=== PATIENT | male | born 1970 | race Caucasian/White ===

== ENCOUNTER 2024-03-12 15:22 | Emergency (ER) | payer MEDICAID ==
[~2024-03-12] VITALS: Ht 177.8 cm; Wt 106.8 kg
[2024-03-12] MEDS ORDERED: ketorolac trometh inj. 60 MG/2 ML VIAL IM ONE (15:55)
[2024-03-12] MEDS ORDERED: PRED10TA23 PO (16:15)
[2024-03-12] MEDS ORDERED: LIDO700A32 TOP (16:15)
[2024-03-12] MEDS ORDERED: CYCL-1 PO (16:15)
[2024-03-12] MEDS: ketorolac tromethamine 15mg/ml inj. IM ONE (16:57)
[2024-03-12] MEDS: dexamethasone sod phosphate 10mg/ml inj IM STA (16:58)
[2024-03-12 17:02] VITALS: BP 191/124; PULSE 102; RESP 18; TEMP 98.4; O2SAT 98
== END 2024-03-12 17:07 | disposition home or self-care (01) ==
LOC: ER 15:24
DX: M54.50 Low back pain, unspecified (principal); I10 Essential (primary) hypertension
CPT/HCPCS: 96372; 99284; J1100; J1885

== ENCOUNTER 2024-03-28 13:44 | Outpatient (CLI) | payer MEDICAID ==
[~2024-03-28 13:44] MED LIST: CYCL-1 PO; LIDO700A32 TOP
== END 2024-03-28 23:59 | disposition home or self-care (01) ==
LOC: MRI 13:44
PROVIDERS: ATTEND Physician Assistant
DX: M51.17 Intervertebral disc disorders with radiculopathy, lumbosacral region (principal); M47.26 Other spondylosis with radiculopathy, lumbar region; M51.36 Other intervertebral disc degeneration, lumbar region; G89.4 Chronic pain syndrome; M48.07 Spinal stenosis, lumbosacral region; M54.50 Low back pain, unspecified
CPT/HCPCS: 72148

== ENCOUNTER 2024-06-30 13:18 | Inpatient (IN) | payer MEDICAID ==
[2024-06-30] VITALS (14 sets, daily range): BP systolic 133–163; BP diastolic 82–101; PULSE 90–105; RESP 11–23; TEMP 97.6–98.1; O2SAT 90–100
[~2024-06-30] VITALS: Ht 175.3 cm; Wt 127.0 kg
[2024-06-30] MEDS ORDERED: iohexol 300mg/ml 100ml inj. ONE (15:37)
[2024-06-30] MEDS: ketorolac trometh 30MG/ML vial 30 MG/ML VIAL IV ONE (16:13)
[2024-06-30] MEDS: ondansetron/PF 4mg/2ml inj IV ONE (16:13)
[2024-06-30 16:24] LABS: ALANINE AMINOTRANSFERASE 73 U/L (12-78); ALBUMIN 2.7 G/DL (3.4-5.0); ALBUMIN/GLOBULIN RATIO 0.6 (1.1-1.5); ALKALINE PHOSPHATASE 66 IU/L (46-116); ANION GAP 7 (8-16); ASPARTATE AMINO TRANSFERASE 44 U/L (10-37); BILIRUBIN,TOTAL 0.3 MG/DL (0.1-1.0); BLOOD UREA NITROGEN 12 MG/DL (7-18); BUN/CREATININE RATIO 18.5 (10.0-20.0); CALCIUM 8.8 MG/DL (8.5-10.1); CHLORIDE 101 MMOL/L (99-107); CREATININE 0.65 MG/DL (0.60-1.10); GLUCOSE 86 MG/DL (70-104); LIPASE 28 U/L (16-77); POTASSIUM 4.3 MMOL/L (3.5-5.1); SODIUM 139 MMOL/L (135-145); TOTAL CARBON DIOXIDE 31.4 MMOL/L (24-32); TOTAL PROTEIN 7.1 G/DL (6.4-8.2); eCRCL 128 ML/MIN; eGFR > 90 ML/MIN
[2024-06-30 16:40] LABS: APTT 29 SECONDS (22-32)
[2024-06-30 17:15] LABS: BASOPHILS # (AUTO) 0.1 X10'3 (0-0.2); BASOPHILS % (AUTO) 1.1 % (0-1); EOSINOPHILS # (AUTO) 0.5 X10'3 (0-0.9); EOSINOPHILS % (AUTO) 5.1 % (0-6); HEMATOCRIT 40.1 % (42.0-52.0); HEMOGLOBIN 13.1 g/dl (14.0-17.9); LYMPHOCYTES # (AUTO) 1.8 X10'3 (1.1-4.8); LYMPHOCYTES % (AUTO) 17.5 % (21-51); MEAN CORPUSCULAR HEMOGLOBIN 28.2 PG (27.0-31.0); MEAN CORPUSCULAR HGB CONC 32.8 g/dL (33.0-36.5); MEAN CORPUSCULAR VOLUME 86.2 FL (78-98); MEAN PLATELET VOLUME 7.5 FL (7.4-10.4); MONOCYTES # (AUTO) 0.7 X10'3 (0-0.9); MONOCYTES % (AUTO) 7.3 % (2-12); NEUTROPHILS # (AUTO) 6.9 X10'3 (1.8-7.7); PLATELET COUNT 434 X10'3 (140-440); RED BLOOD COUNT 4.65 X10'6 (4.70-6.10)
[2024-06-30] MEDS: piperacillin/tazo 3.375gm/50ml 50 ML IV STA (17:28)
[2024-06-30] MEDS: pantoprazole 40 MG vial IV STA (17:28)
[2024-06-30] MEDS: morphine 4 MG/ML inj SYRINge IV ONE (17:29)
[2024-06-30 18:05] LABS: TOTAL CELLS COUNTED 100
[2024-06-30 18:06] LABS: PLATELET ESTIMATE NORMAL
[2024-06-30] MEDS ORDERED: sevoflurane 250ml liquid IH ONE (18:32)
[2024-06-30] MEDS ORDERED: fentaNYL /PF 50mcg/ml 5ml ampule ONE (18:38)
[2024-06-30] MEDS ORDERED: midazolam 1 mg/ML 2ml injection ONE (18:38)
[2024-06-30] MEDS ORDERED: LIDOcaine 2% (20mg/ml) 5ml vial ONE (18:51)
[2024-06-30] MEDS ORDERED: propofol inj 20 ML IV ONE (18:51)
[2024-06-30] MEDS ORDERED: rocuronium 10mg/ml inj IV ONE ×2 (19:14)
[2024-06-30] MEDS ORDERED: ceFOXitin 1000 MG inj ONE ×2 (19:20→19:21)
[2024-06-30] MEDS ORDERED: ringers solution, lacted 1,000 ML IV SCH (19:50)
[2024-06-30] MEDS ORDERED: ondansetron/PF 4mg/2ml inj IV PRN (19:50)
[2024-06-30] MEDS ORDERED: morphine 2 MG/ML inj. syringe IV PRN (19:50)
[2024-06-30] MEDS ORDERED: meperidine/PF 25mg/ml syringe IV PRN ×2 (19:50)
[2024-06-30] MEDS ORDERED: enalaprilat dihydrate 2.5mg/2ml vial IV PRN (19:50)
[2024-06-30] MEDS ORDERED: labetalol 20mg/4ml (5mg/ml) syringe IV PRN (19:50)
[2024-06-30] MEDS ORDERED: proCHLORperazine 10 MG/2 ml inj IV PRN (19:50)
[2024-06-30] MEDS ORDERED: ondansetron/PF 4mg/2ml inj ONE (20:19)
[2024-06-30] MEDS ORDERED: acetaminophen 1,000mg/100ml IV 100 ML IV ONE (20:21)
[2024-06-30] MEDS ORDERED: naloxone 0.4 mg/ml inj IV PRN (20:30)
[2024-06-30] MEDS: morphine 4 MG/ML inj SYRINge IV PRN (20:40)
[2024-06-30] MEDS ORDERED: HYDROmorph/NS 0.2 mg/ml PCA 100 ML IV PRN (20:50)
[2024-06-30] MEDS: meperidine/PF 25mg/ml syringe IV PRN (20:53)
[2024-06-30] MEDS: HYDROmorphone inj. 0.5 MG/0.5 ML DISP.SYRIN IV ONE (21:14)
[2024-06-30] MEDS: HYDROmorph/NS 0.2 mg/ml PCA 100 ML IV SCH (21:30)
[2024-06-30] MEDS: pantoprazole 40MG/NS 100ML BAG 100 ML IV SCH (21:36)
[2024-07-01] VITALS (20 sets, daily range): BP systolic 126–169; BP diastolic 76–105; PULSE 77–108; RESP 12–25; TEMP 97.8–98.6; O2SAT 90–97
[2024-07-01] MEDS: piperacillin/tazo 4.5gm/100ml 100 ML IV SCH (00:15)
[2024-07-01] MEDS: BUPIVACAINE liposomal/PF 13.3 MG/ML vial IM ONE ×2 (01:20→01:21)
[2024-07-01] MEDS: BUPIVAcaine/PF 2.5mg/ml (0.25%) 10ml vial ONE (01:20)
[2024-07-01] MEDS ORDERED: LISI20TA28 PO (05:12)
[2024-07-01 07:49] LABS: BASOPHILS % (AUTO) 0.1 % (0-1); EOSINOPHILS % (AUTO) 0 % (0-6); HEMATOCRIT 38.3 % (42.0-52.0); HEMOGLOBIN 12.3 g/dl (14.0-17.9); LYMPHOCYTES # (AUTO) 0.8 X10'3 (1.1-4.8); LYMPHOCYTES % (AUTO) 6.1 % (21-51); MEAN CORPUSCULAR HEMOGLOBIN 27.8 PG (27.0-31.0); MEAN CORPUSCULAR HGB CONC 32.2 g/dL (33.0-36.5); MEAN CORPUSCULAR VOLUME 86.4 FL (78-98); MEAN PLATELET VOLUME 7.1 FL (7.4-10.4); MONOCYTES # (AUTO) 0.3 X10'3 (0-0.9); MONOCYTES % (AUTO) 1.9 % (2-12); NEUTROPHILS # (AUTO) 12.2 X10'3 (1.8-7.7); NEUTROPHILS % (AUTO) 91.9 % (42-75); PLATELET COUNT 456 X10'3 (140-440); RED BLOOD COUNT 4.44 X10'6 (4.70-6.10); WHITE BLOOD COUNT 13.3 X10'3 (4.5-11.0)
[2024-07-01] MEDS: sod chloride 0.9% 10ml flush syringe IV SCH (07:52)
[2024-07-01 08:07] LABS: ALBUMIN 2.3 G/DL (3.4-5.0); ANION GAP 4 (8-16); BLOOD UREA NITROGEN 13 MG/DL (7-18); BUN/CREATININE RATIO 16.7 (10.0-20.0); CALCIUM 8.6 MG/DL (8.5-10.1); CHLORIDE 105 MMOL/L (99-107); CREATININE 0.78 MG/DL (0.60-1.10); GLUCOSE 119 MG/DL (70-104); POTASSIUM 4.7 MMOL/L (3.5-5.1); SODIUM 139 MMOL/L (135-145); TOTAL CARBON DIOXIDE 29.6 MMOL/L (24-32); eCRCL 107 ML/MIN; eGFR > 90 ML/MIN
[2024-07-01] MEDS: ondansetron/PF 4mg/2ml inj IV PRN (09:21)
[2024-07-01] MEDS: HYDROmorph/NS 0.2 mg/ml PCA 100 ML IV SCH (15:00)
[2024-07-02] VITALS (7 sets, daily range): BP systolic 123–161; BP diastolic 81–94; PULSE 82–98; RESP 12–19; TEMP 98–99; O2SAT 91–95
[2024-07-02 06:13] LABS: BASOPHILS # (AUTO) 0.1 X10'3 (0-0.2); BASOPHILS % (AUTO) 0.5 % (0-1); EOSINOPHILS # (AUTO) 0.1 X10'3 (0-0.9); EOSINOPHILS % (AUTO) 0.9 % (0-6); HEMOGLOBIN 11.9 g/dl (14.0-17.9); LYMPHOCYTES # (AUTO) 2.2 X10'3 (1.1-4.8); LYMPHOCYTES % (AUTO) 16.1 % (21-51); MEAN CORPUSCULAR HEMOGLOBIN 27.7 PG (27.0-31.0); MEAN CORPUSCULAR HGB CONC 32.2 g/dL (33.0-36.5); MEAN CORPUSCULAR VOLUME 86.1 FL (78-98); MEAN PLATELET VOLUME 6.9 FL (7.4-10.4); MONOCYTES # (AUTO) 0.9 X10'3 (0-0.9); MONOCYTES % (AUTO) 6.4 % (2-12); NEUTROPHILS # (AUTO) 10.4 X10'3 (1.8-7.7); NEUTROPHILS % (AUTO) 76.1 % (42-75); PLATELET COUNT 422 X10'3 (140-440); RED CELL DISTRIBUTION WIDTH 13.7 % (11.5-14.5); WHITE BLOOD COUNT 13.7 X10'3 (4.5-11.0)
[2024-07-02 06:25] LABS: ANION GAP 6 (8-16); BLOOD UREA NITROGEN 14 MG/DL (7-18); BUN/CREATININE RATIO 16.1 (10.0-20.0); CALCIUM 8.4 MG/DL (8.5-10.1); CHLORIDE 105 MMOL/L (99-107); CREATININE 0.87 MG/DL (0.60-1.10); GLUCOSE 84 MG/DL (70-104); POTASSIUM 3.9 MMOL/L (3.5-5.1); SODIUM 141 MMOL/L (135-145); TOTAL CARBON DIOXIDE 30.5 MMOL/L (24-32); eCRCL 96 ML/MIN; eGFR > 90 ML/MIN
[2024-07-02] MEDS: HYDROcodone/acetaminophen 10/325mg tab PO PRN (07:38)
[2024-07-02] MEDS: HYDROmorphone 1 mg/ml syringe IV PRN (09:48)
[2024-07-02] MEDS: pantoprazole 40mg Tablet.DR PO SCH (18:58)
[2024-07-03] VITALS (7 sets, daily range): BP systolic 138–164; BP diastolic 73–97; PULSE 70–94; RESP 11–20; TEMP 96–98.4; O2SAT 93–97
[2024-07-03 06:48] LABS: BASOPHILS # (AUTO) 0.1 X10'3 (0-0.2); BASOPHILS % (AUTO) 0.8 % (0-1); EOSINOPHILS # (AUTO) 0.3 X10'3 (0-0.9); EOSINOPHILS % (AUTO) 2.4 % (0-6); HEMATOCRIT 41.1 % (42.0-52.0); HEMOGLOBIN 13.3 g/dl (14.0-17.9); LYMPHOCYTES # (AUTO) 2.1 X10'3 (1.1-4.8); LYMPHOCYTES % (AUTO) 17.5 % (21-51); MEAN CORPUSCULAR HEMOGLOBIN 27.9 PG (27.0-31.0); MEAN CORPUSCULAR HGB CONC 32.4 g/dL (33.0-36.5); MEAN CORPUSCULAR VOLUME 86.1 FL (78-98); MONOCYTES # (AUTO) 0.9 X10'3 (0-0.9); MONOCYTES % (AUTO) 7.4 % (2-12); NEUTROPHILS # (AUTO) 8.5 X10'3 (1.8-7.7); NEUTROPHILS % (AUTO) 71.9 % (42-75); PLATELET COUNT 463 X10'3 (140-440); RED BLOOD COUNT 4.77 X10'6 (4.70-6.10); WHITE BLOOD COUNT 11.8 X10'3 (4.5-11.0)
[2024-07-03 07:00] LABS: ALBUMIN 2.2 G/DL (3.4-5.0); ANION GAP 6 (8-16); BLOOD UREA NITROGEN 10 MG/DL (7-18); BUN/CREATININE RATIO 13.3 (10.0-20.0); CALCIUM 8.5 MG/DL (8.5-10.1); CHLORIDE 104 MMOL/L (99-107); CREATININE 0.75 MG/DL (0.60-1.10); GLUCOSE 85 MG/DL (70-104); POTASSIUM 4.1 MMOL/L (3.5-5.1); SODIUM 138 MMOL/L (135-145); TOTAL CARBON DIOXIDE 27.6 MMOL/L (24-32); eCRCL 111 ML/MIN; eGFR > 90 ML/MIN
[2024-07-03 07:46] LABS: PLATELET ESTIMATE INCREASED; TOTAL CELLS COUNTED 100
[2024-07-03] MEDS: magnesium hydroxide 30ml (MOM) UD suspension PO SCH (21:02)
[2024-07-03] MEDS: enoxaparin 40mg/0.4ml syringe SUBCUT SCH (21:05)
[2024-07-04] VITALS (7 sets, daily range): BP systolic 114–148; BP diastolic 78–97; PULSE 84–98; RESP 16–20; TEMP 97.6–99.3; O2SAT 93–95
[2024-07-04 06:04] LABS: BASOPHILS # (AUTO) 0.1 X10'3 (0-0.2); BASOPHILS % (AUTO) 0.6 % (0-1); EOSINOPHILS # (AUTO) 0.3 X10'3 (0-0.9); EOSINOPHILS % (AUTO) 2.9 % (0-6); HEMATOCRIT 41.5 % (42.0-52.0); HEMOGLOBIN 13.6 g/dl (14.0-17.9); LYMPHOCYTES % (AUTO) 17.2 % (21-51); MEAN CORPUSCULAR HEMOGLOBIN 28.1 PG (27.0-31.0); MEAN CORPUSCULAR HGB CONC 32.8 g/dL (33.0-36.5); MEAN CORPUSCULAR VOLUME 85.5 FL (78-98); MEAN PLATELET VOLUME 7.1 FL (7.4-10.4); MONOCYTES # (AUTO) 0.7 X10'3 (0-0.9); MONOCYTES % (AUTO) 5.9 % (2-12); NEUTROPHILS # (AUTO) 8.3 X10'3 (1.8-7.7); NEUTROPHILS % (AUTO) 73.4 % (42-75); PLATELET COUNT 484 X10'3 (140-440); RED BLOOD COUNT 4.85 X10'6 (4.70-6.10); RED CELL DISTRIBUTION WIDTH 14.1 % (11.5-14.5); WHITE BLOOD COUNT 11.4 X10'3 (4.5-11.0)
[2024-07-04 06:20] LABS: ALBUMIN 2.2 G/DL (3.4-5.0); ANION GAP 5 (8-16); BLOOD UREA NITROGEN 8 MG/DL (7-18); BUN/CREATININE RATIO 10.1 (10.0-20.0); CALCIUM 8.8 MG/DL (8.5-10.1); CHLORIDE 104 MMOL/L (99-107); CREATININE 0.79 MG/DL (0.60-1.10); GLUCOSE 96 MG/DL (70-104); POTASSIUM 4.3 MMOL/L (3.5-5.1); SODIUM 139 MMOL/L (135-145); TOTAL CARBON DIOXIDE 29.6 MMOL/L (24-32); eCRCL 106 ML/MIN; eGFR > 90 ML/MIN
[2024-07-04 06:45] LABS: PLATELET ESTIMATE INCREASED; TOTAL CELLS COUNTED 100
[2024-07-04] MEDS: HYDROcodone/acetaminophen 10/325mg tab PO PRN (18:00)
[2024-07-05 03:00] VITALS: BP 149/84; PULSE 95; RESP 18; TEMP 98.8; O2SAT 94
[2024-07-05 06:12] LABS: BASOPHILS # (AUTO) 0.1 X10'3 (0-0.2); BASOPHILS % (AUTO) 0.7 % (0-1); EOSINOPHILS # (AUTO) 0.4 X10'3 (0-0.9); EOSINOPHILS % (AUTO) 3.9 % (0-6); HEMOGLOBIN 13.8 g/dl (14.0-17.9); LYMPHOCYTES # (AUTO) 2.3 X10'3 (1.1-4.8); LYMPHOCYTES % (AUTO) 20.3 % (21-51); MEAN CORPUSCULAR HEMOGLOBIN 28.2 PG (27.0-31.0); MEAN CORPUSCULAR HGB CONC 32.8 g/dL (33.0-36.5); MEAN CORPUSCULAR VOLUME 85.8 FL (78-98); MEAN PLATELET VOLUME 7.2 FL (7.4-10.4); MONOCYTES # (AUTO) 0.6 X10'3 (0-0.9); MONOCYTES % (AUTO) 4.8 % (2-12); NEUTROPHILS % (AUTO) 70.3 % (42-75); PLATELET COUNT 584 X10'3 (140-440); RED BLOOD COUNT 4.89 X10'6 (4.70-6.10); RED CELL DISTRIBUTION WIDTH 13.8 % (11.5-14.5); WHITE BLOOD COUNT 11.4 X10'3 (4.5-11.0)
[2024-07-05 06:14] LABS: ALBUMIN 2.4 G/DL (3.4-5.0); ANION GAP 8 (8-16); BLOOD UREA NITROGEN 9 MG/DL (7-18); BUN/CREATININE RATIO 10.6 (10.0-20.0); CHLORIDE 102 MMOL/L (99-107); CREATININE 0.85 MG/DL (0.60-1.10); GLUCOSE 109 MG/DL (70-104); POTASSIUM 4.3 MMOL/L (3.5-5.1); SODIUM 139 MMOL/L (135-145); TOTAL CARBON DIOXIDE 28.8 MMOL/L (24-32); eCRCL 98 ML/MIN; eGFR > 90 ML/MIN
[2024-07-05 06:52] VITALS: BP 143/81; PULSE 95; RESP 16; TEMP 97.9; O2SAT 95
[2024-07-05 07:23] LABS: PLATELET ESTIMATE INCREASED; TOTAL CELLS COUNTED 100
[2024-07-05 08:00] VITALS: RESP 16; O2SAT 95
[2024-07-05 11:00] VITALS: BP 149/90; PULSE 75; RESP 18; TEMP 97.8; O2SAT 97
[2024-07-05] MEDS ORDERED: AMOX-580 PO (12:23)
[2024-07-05 14:07] VITALS: RESP 18
== END 2024-07-05 14:27 | disposition home or self-care (01) | DRG 220 ==
LOC: ER 13:19 → ED HOLD 20:36 → PCU 3S 21:55
PROVIDERS: ADMIT Surgery; ATTEND Surgery
PROC: 0WQF0ZZ Repair Abdominal Wall, Open Approach (ICD-10-PCS; 2024-06-30)
PROC: 3E0T3BZ Introduction of Anesthetic Agent into Peripheral Nerves and Plexi, Percutaneous Approach (ICD-10-PCS; 2024-06-30)
PROC: 0DQ90ZZ Repair Duodenum, Open Approach (ICD-10-PCS; principal; 2024-06-30 18:32)
DX: K43.2 Incisional hernia without obstruction or gangrene (principal); K26.5 Chronic or unspecified duodenal ulcer with perforation; K68.9 Other disorders of retroperitoneum; I25.10 Atherosclerotic heart disease of native coronary artery without angina pectoris; I10 Essential (primary) hypertension; G47.00 Insomnia, unspecified; D64.9 Anemia, unspecified; F32.A Depression, unspecified
CPT/HCPCS: 36415; 71045; 74177; 80048; 80053; 83605; 83690; 85007; 85025; 85610; 85730; 87070; 87075; 87081; 93005; 96365; 96375; 99291; A4615; A4618; A6253; A6258; A6407; A6449; A7000; C1758; C9290; G0378; J0131; J0694; J1100; J1170; J1650; J1885; J2175; J2250; J2270; J2405; J2470; J2543; J2704; J2710; J3010; J3490; J7040; J7120; Q9967

== ENCOUNTER 2024-11-10 09:19 | Emergency (ER) | payer MEDICAID ==
[~2024-11-10] VITALS: Ht 175.3 cm; Wt 126.9 kg
[~2024-11-10 09:19] MED LIST changes: -CYCL-1 PO; -LIDO700A32 TOP; +LISI20TA28 PO
[2024-11-10 09:29] VITALS: BP 172/101; PULSE 89; TEMP 98.9; O2SAT 98
[2024-11-10] MEDS ORDERED: METH4TAB81 PO (11:29)
[2024-11-10] MEDS ORDERED: CYCL-1 PO (11:30)
[2024-11-10] MEDS: ketorolac trometh 30MG/ML vial 30 MG/ML VIAL IM ONE (12:06)
[2024-11-10] MEDS: cyclobenzaprine 10mg tablet PO ONE (12:06)
[2024-11-10 12:39] VITALS: RESP 16
== END 2024-11-10 12:41 | disposition home or self-care (01) ==
LOC: ER 09:20
DX: M54.41 Lumbago with sciatica, right side (principal); I10 Essential (primary) hypertension; F32.A Depression, unspecified; Z56.0 Unemployment, unspecified; Z60.2 Problems related to living alone
CPT/HCPCS: 96372; 99283; J1885

== ENCOUNTER 2024-11-11 13:39 | Emergency (ER) | payer MEDICAID ==
[~2024-11-11] VITALS: Ht 175.3 cm; Wt 127.3 kg
[~2024-11-11 13:39] MED LIST changes: +CYCL-1 PO; +METH4TAB81 PO
[2024-11-11 15:29] LABS: BILIRUBIN,URINE NEGATIVE (Neg); CLARITY,URINE CLEAR (Clear); COLOR,URINE YELLOW (Yellow); GLUCOSE, URINE 100 mg/dl (Neg); KETONES,URINE TRACE mg/dl (Neg); LEUKOCYTE ESTERASE ,URINE NEGATIVE (Neg); NITRITES, URINE NEGATIVE (Neg); OCCULT BLOOD,URINE NEGATIVE (Neg); PROTEIN,URINE NEGATIVE (Neg); UROBILINOGEN,URINE 0.2 E.U/dL (0.2-1.0)
[2024-11-11 15:45] LABS: UA COLLECTION TYPE NON-SPECIFIED
[2024-11-11] MEDS: labetalol 100mg tablet PO ONE (16:27)
[2024-11-11] MEDS: HYDROcodone/acetaminophen 10/325mg tab PO ONE (16:36)
[2024-11-12 01:43] VITALS: BP 147/97; PULSE 110; RESP 18; TEMP 97; O2SAT 100
== END 2024-11-11 17:41 | disposition home or self-care (01) ==
LOC: ER 13:40
DX: M79.604 Pain in right leg (principal); I10 Essential (primary) hypertension; I25.10 Atherosclerotic heart disease of native coronary artery without angina pectoris; Z79.899 Other long term (current) drug therapy
CPT/HCPCS: 81003; 99283

== ENCOUNTER 2025-07-06 14:31 | Emergency (ER) | payer MEDICAID ==
[~2025-07-06] VITALS: Ht 175.3 cm; Wt 188.9 kg
[2025-07-06 14:39] VITALS: TEMP 98.4
[2025-07-06 14:54] LABS: MEAN PLATELET VOLUME 7.4 FL (7.4-10.4); RED CELL DISTRIBUTION WIDTH 15.8 % (11.5-14.5)
[2025-07-06 15:07] LABS: CREATININE 1.06 MG/DL (0.60-1.10); TOTAL CARBON DIOXIDE 27.7 MMOL/L (24-32); eCRCL 78 ML/MIN; eGFR 72 ML/MIN
[2025-07-06] MEDS: mag hydrox/Alum hydrox/simeth 30ml oral suspension PO STA (16:35)
[2025-07-06] MEDS ORDERED: iohexol 300mg/ml 100ml inj. ONE (17:04)
[2025-07-06] MEDS: pantoprazole 40mg Tablet.DR PO STA (18:19)
[2025-07-06] MEDS: ondansetron 4mg rapidly disintigrating tab PO STA (18:19)
[2025-07-06] MEDS: LIDOcaine 2% Viscous 15ml cup MM STA (18:30)
[2025-07-06] MEDS: ondansetron/PF 4mg/2ml inj IV STA (19:01)
--- NOTE | 2025-07-06 19:13 | RADIOLOGY REPORT ---
Exam: CT CT ABDOMEN PELVIS W/ IV CONTRAST History: epigastric and RUQ abd pain Comparison Study: CT CT ABDOMEN PELVIS on DOS: 06/30/24 TECHNIQUE: A digital fitness specialist image was obtained. During the uneventful, intravenous administration of contrast material, multislice data acquisition was obtained through the abdomen and pelvis. The data set was subsequently reconstructed into multiplanar reformats. RADIATION DOSE: CTDI vol 35.65 mGy. DLP 1922.62 mGy.cm Findings: Lungs: The lung bases are clear. Liver: Too small to characterize right hepatic lesion. Spleen: Unremarkable. Pancreas: Unremarkable. Gallbladder: Unremarkable. Adrenals: Unremarkable Kidneys: Too small to characterize left renal lesion. Left renal cyst. No hydronephrosis. Pelvic Viscera: Prostatomegaly. Evaluation is degraded by artifact from adjacent hip hardware. Vasculature: Unremarkable. Retroperitoneum: Unremarkable. Bowel: There is wall thickening and stranding about the pylorus and proximal duodenum. There is no bowel obstruction. Musculoskeletal: Right hip arthroplasty. Advanced degenerative changes of the left hip. Soft tissues: Multiple ventral abdominal hernias containing fat and bowel without evidence of obstruction. Impression: 1. Findings as above suggestive of duodenitis/possible peptic ulcer disease in the appropriate clinical setting. A posttreatment follow-up is suggested to ensure appropriate resolution and lack of underlying lesion. Endoscopy may be beneficial as clinically indicated. 2. Additional findings as detailed.
--- NOTE | 2025-07-06 19:32 | Physician Documentation ---
History of Present Illness Chief Complaint: Abdominal Pain Stated Complaint: ABDOMINAL PAIN Time Seen by MD: 16:17 Primary Medical Doctor: NONE HPI Patient is seen today with complaints of significant epigastric pain of his abdomen as well as right upper quadrant abdominal pain. Patient states did have surgery on his stomach to fix a perforated gastric ulcer about four or five months ago. Patient states he actually has continued to take ibuprofen for joint pains and aches. Patient denies any fevers or chills but states his pain is worse after eating and seems to come and go and over the last three days has become much more significant and severe. He has no other concern or complaint at this time. Medication Reconciliation Allergies: Coded Allergies: No Known Allergies (Unverified , 11/10/24) Scheduled Cyclobenzaprine* (Cyclobenzaprine*), 1 TAB PO HS Lisinopril (Lisinopril), 1 TAB PO DAILY, (Reported) Methylprednisolone (Medrol Dosepak), 4 MG PO DAILY Past Medical History Past Medical History: Hypertension, Depression Past Surgical History: no surgical history Patient History: (CAD) Coronary arteriosclerosis FATHER Alcohol Use: None Drug Use: none Lives with: Alone Lives In: Home Occupation: unemployed Physical Exam Vital Signs: Temperature: 98.4, Source: Temporal, Heart Rate: 97, Respiratory Rate: 16, BP: 223/132, Pulse Oximetry: 99, Weight: 188.900 Oxygen Flow Rate: 0 Progress Results/Orders Results/Orders Orders - VALENTINE HALL PAC Ultrasound Of Abdomen (07/06/25 16:38) Ct Abdomen Pelvis (07/06/25 18:35) Saline Lock (07/06/25 ) Completed Orders - VALENTINE HALL PAC Lidocaine 2% Viscous (Xylocaine 2% Visco (07/06/25 16:35) Mag & Alum Hydrox/Simeth Susp (Maalox Or (07/06/25 16:35) Pantoprazole Tablet (Protonix) (07/06/25 16:35) Ondansetron Disint. Tablet (Zofran Odt T (07/06/25 16:40) Ct Abdomen Pelvis (07/06/25 18:35) Iohexol 300mg/Ml 100ml Inj. (Omnipaque-3 (07/06/25 17:04) Ondansetron Inj. (Zofran 4mg/2ml Vial) (07/06/25 18:46) Clonidine Tablet (Catapres Tablet) (07/06/25 18:46) Medications Received in ER Medications (Trade) Dose Ordered Sig/Brent Route PRN Reason Start Time Stop Time Status Last Admin Dose Admin (Xylocaine 2% Viscous 15mL cup) 15 ml ONCE STAT MM 07/06/25 16:35 07/06/25 16:39 DC 07/06/25 18:30 15 ML (Maalox oral suspension) 30 ml ONCE STAT PO 07/06/25 16:35 07/06/25 16:39 DC 07/06/25 16:35 30 ML (Protonix) 40 mg ONCE STAT PO 07/06/25 16:35 07/06/25 16:39 DC 07/06/25 18:19 40 MG (Zofran ODT tablet) 4 mg ONCE STAT PO 07/06/25 16:40 07/06/25 16:41 DC 07/06/25 18:19 4 MG (Zofran 4mg/2ml vial) 8 mg ONCE STAT IV 07/06/25 18:46 07/06/25 18:53 DC 07/06/25 19:01 8 MG (Catapres tablet) 0.1 mg ONCE STAT PO 07/06/25 18:46 07/06/25 18:47 DC 07/06/25 19:02 0.1 MG Vital Signs 07/06/25 07/06/25 07/06/25 14:39 18:40 18:42 Temp 98.4 Pulse 100 97 Resp 18 16 16 B/P (MAP) 148/89 223/132 (162) Pulse Ox 97 99 O2 Flow Rate 0 Laboratory Tests Test 07/06/25 14:45 07/06/25 19:05 White Blood Count 12.0 H Red Blood Count 5.60 Hemoglobin 13.8 L Hematocrit 42.4 Mean Corpuscular Volume 75.7 L Mean Corpuscular Hemoglobin 24.7 L Mean Corpuscular Hemoglobin Concent 32.6 L Red Cell Distribution Width 15.8 H Platelet Count 421 Mean Platelet Volume 7.4 Neutrophils (%) (Auto) 78.3 H Lymphocytes (%) (Auto) 15.5 L Monocytes (%) (Auto) 4.8 Eosinophils (%) (Auto) 0.8 Basophils (%) (Auto) 0.6 Neutrophils # (Auto) 9.4 H Lymphocytes # (Auto) 1.9 Monocytes # (Auto) 0.6 Eosinophils # (Auto) 0.1 Basophils # (Auto) 0.1 CBC Comment Sodium Level 139 Potassium Level 3.9 Chloride Level 105 Carbon Dioxide Level 27.7 Anion Gap 6 L Blood Urea Nitrogen 14 Creatinine 1.06 Estimated GFR/1.73 m2 72 BUN/Creatinine Ratio 13.2 Glucose Level 98 Calcium Level 9.1 Total Bilirubin 0.5 Aspartate Amino Transf (AST/SGOT) 21 Alanine Aminotransferase (ALT/SGPT) 20 Alkaline Phosphatase 100 Total Protein 7.7 Albumin 3.8 Globulin 3.9 Albumin/Globulin Ratio 1.0 L Lipase 53 Chemistry Comments Urine Comment EKG/XRAY/CT/US/VASC/MRI CT : Impression CAT SCAN Patient: KARENA VALADEZ Medical Record: [id number] [facility] : 1970, Age: 54 Sex: Male Location: ER Patient Status: [facility] ER Service Date/Time: 07/06/251834 Ordering Physician: VALENTINE HALL PAC Exam: CT ABDOMEN PELVIS Exam: CT CT ABDOMEN PELVIS W/ IV CONTRAST History: epigastric and RUQ abd pain Comparison Study: CT CT ABDOMEN PELVIS on DOS: 06/30/24 TECHNIQUE: A digital continuous improvement director image was obtained. During the uneventful, intravenous administration of contrast material, multislice data acquisition was obtained through the abdomen and pelvis. The data set was subsequently reconstructed into multiplanar reformats. RADIATION DOSE: CTDI vol 35.65 mGy. DLP 1922.62 mGy.cm Findings: Lungs: The lung bases are clear. Liver: Too small to characterize right hepatic lesion. Spleen: Unremarkable. Pancreas: Unremarkable. Gallbladder: Unremarkable. Adrenals: Unremarkable Kidneys: Too small to characterize left renal lesion. Left renal cyst. No hydronephrosis. Pelvic Viscera: Prostatomegaly. Evaluation is degraded by artifact from adjacent hip hardware. Vasculature: Unremarkable. Retroperitoneum: Unremarkable. Bowel: There is wall thickening and stranding about the pylorus and proximal duodenum. There is no bowel obstruction. Musculoskeletal: Right hip arthroplasty. Advanced degenerative changes of the left hip. Soft tissues: Multiple ventral abdominal hernias containing fat and bowel without evidence of obstruction. Impression: 1. Findings as above suggestive of duodenitis/possible peptic ulcer disease in the appropriate clinical setting. A posttreatment follow-up is suggested to ensure appropriate resolution and lack of underlying lesion. Endoscopy may be beneficial as clinically indicated. 2. Additional findings as detailed. Electronically Signed by:JAYESH HEARD MD Date & Time: 07/06/251909 Dictated by: JAYESH HEARD MD Dictation date and time: 07/06/251909 Primary Care Provider: NO PRIMARY CARE PROVIDER cc: VALENTINE HALL PAC ~ Medical Decision Making Findings Patient is seen today with complaints of significant epigastric pain of his abdomen as well as right upper quadrant abdominal pain. Patient states did have surgery on his stomach to fix a perforated gastric ulcer about four or five months ago. Patient states he actually has continued to take ibuprofen for joint pains and aches. Patient denies any fevers or chills but states his pain is worse after eating and seems to come and go and over the last three days has become much more significant and severe. He has no other concern or complaint at this time. Patient responded very well to GI cocktail of viscous lidocaine, Maalox, and pantoprazole 40 mg by mouth. Patient reported near full relief of symptoms the epigastric pain. CT scan showed no sign of perforation but did show sign of peptic ulcer disease. Patient was strongly encouraged at this time to discontinue use of any and all NSAIDs for good and I will send over a prescription for sucralfate and pantoprazole and patient will follow up with primary care in 1-2 weeks for further eval and treatment and possible follow up with GI for upper endoscopy. Departure Disposition: HOME / SELF CARE / HOMELESS Impression: Primary Impression: Abdominal pain Qualified Codes: R10.13 - Epigastric pain Additional Impression: PUD (peptic ulcer disease) Condition: Improved Discharge Instructions: Peptic Ulcer Eating Plan, Peptic Ulcer, [id number] Additional Instructions: Patient responded very well to GI cocktail of viscous lidocaine, Maalox, and pantoprazole 40 mg by mouth. Patient reported near full relief of symptoms the epigastric pain. CT scan showed no sign of perforation but did show sign of peptic ulcer disease. Patient was strongly encouraged at this time to discon tinue use of any and all NSAIDs for good and I will send over a prescription for sucralfate and pantoprazole and patient will follow up with primary care in 1-2 weeks for further eval and treatment and possible follow up with GI for upper endoscopy. Referrals: NO PRIMARY CARE PROVIDER (PCP) Prescriptions Pantoprazole Sodium (Pantoprazole Sodium) 40 Mg Tablet.dr 1 TAB PO DAILY for 30 Days, #30 TAB 0 Refills Prov: VALENTINE HALL 07/06/25 Sucralfate (Sucralfate) 1 Gram Tablet 1 TAB PO Q8H for 30 Days, #90 TAB 0 Refills Prov: VALENTINE HALL 07/06/25 Signature Scribe Signature: No scribe Attestation: No scribe VALENTINE HALL Jul 06, 2025 19:32
[2025-07-06] MEDS ORDERED: PANT40TA54 PO (19:41)
[2025-07-06] MEDS ORDERED: SUCR1TAB PO (19:41)
[2025-07-06 19:52] LABS: LEUKOCYTE ESTERASE ,URINE NEGATIVE (Neg); NITRITES, URINE NEGATIVE (Neg); OCCULT BLOOD,URINE NEGATIVE (Neg)
[2025-07-06 20:03] VITALS: BP 174/94; PULSE 88; RESP 16; O2SAT 99
[2025-07-06 20:10] LABS: UA COLLECTION TYPE NON-SPECIFIED
== END 2025-07-06 20:04 | disposition home or self-care (01) ==
LOC: ER 14:32
DX: K27.9 Peptic ulcer, site unspecified, unspecified as acute or chronic, without hemorrhage or perforation (principal); I10 Essential (primary) hypertension; I25.10 Atherosclerotic heart disease of native coronary artery without angina pectoris; F32.A Depression, unspecified; Z56.0 Unemployment, unspecified; Z79.899 Other long term (current) drug therapy; Z60.2 Problems related to living alone
CPT/HCPCS: 36415; 74177; 80053; 81003; 83690; 85025; 96374; 99285; J2405; Q9967